=== PATIENT | female | born 1950 | race Caucasian/White ===

== ENCOUNTER 2017-04-17 00:37 | Inpatient (IN) | payer OTHER ==
[~2017-04-17] VITALS: Ht 154.9 cm; Wt 70.3 kg
--- NOTE | ~2017-04-17 | HC ---
[facility] [place] [address] CONSULTATION Name: TIMA FLOYD Room #: 428-P [facility] IN ..#: [id number] Admission: 04/17/17 Attend Phys: Juve Crews MD Discharge: Date of : 54 Report #: [id number] THIS REPORT FOR: //name// CC: Juve Mendoza DO DATE OF SERVICE: 04/17/2017 REASON FOR CONSULTATION: The patient is a 66-year-old woman who is admitted to [facility] with evidence of acute pancreatitis. HISTORY OF PRESENT ILLNESS: This 66-year-old patient reports she was well until yesterday evening when she developed severe pain in the epigastric to right upper quadrant area with some radiation to her back. The pain became very intense. She did have nausea and vomiting and reportedly vomited about 7 times. The pain persisted and she presented to [facility] Emergency Room where she was evaluated. Laboratory studies revealed normal electrolytes except for mild decreased potassium of 3.2, BUN was slightly elevated at 21, creatinine was 0.9. Her blood sugar was 236. AST, ALT, alkaline phosphatase and bilirubin were all normal. Lipase was elevated at 10,772, albumin 4.2. Her serum calcium was normal at 9.6. White count was 11.4, hemoglobin 13.5, platelet count of 326,000. She had a plain abdominal film, which revealed nonspecific findings. CT abdomen and pelvis with contrast was obtained. Gallbladder was noted to be normal, kidney cysts were noted. There is fluid around the pancreas, distal stomach, duodenum and retroperitoneum without any loculated fluid. There was felt to be edema in the head of the pancreas. Findings were consistent with acute pancreatitis. A mass lesion of the pancreas was not reported. The patient was admitted. She has been receiving pain medicines. She is somewhat lethargic at this time presumably from narcotics. She reports she has previously not had problems with pancreatitis. She is not aware of prior gallbladder disease. She does not like alcohol, therefore does not drink and has never drunk much alcohol. There is no family history of pancreatitis. She is on therapy for hyperlipidemia, but she does not know her numbers. None of her medications are new. PAST MEDICAL HISTORY: She has had high blood pressure, elevated cholesterol, diabetes, diverticulitis. PAST SURGICAL HISTORY: Hysterectomy, carpal tunnel release and a tummy tuck. ALLERGIES: NEOMYCIN, BACITRACIN, POLYMYXIN B, AND QUININE. [facility] [address] [place] [address] CONSULTATION Name: TIMA FLOYD Room #: 428-P [facility] IN [facility]#: [id number] Admission: 04/17/17 Attend Phys: Juve Crews MD Discharge: Date of : 54 Report #: [id number] FAMILY HISTORY: Grandmother had colon cancer. The patient is uncertain of her age at diagnosis. There is no family history of pancreatitis or pancreatic cancer. SOCIAL HISTORY: She is . She quit smoking 8 years ago. She does not consume alcohol. Last colonoscopy was done 1 month ago in [place]. She reports she had a positive Cologuard test, but the colonoscopy was negative per her report. REVIEW OF SYSTEMS: Somewhat limited as she is lethargic from her narcotics. GENERAL: No change in weight, fever or chills. CENTRAL NERVOUS SYSTEM: No weakness, numbness, loss of consciousness. ENT: No change in vision, hearing or sores in the mouth. PULMONARY: Former cigarette smoker. No cough, pneumonia or tuberculosis. CARDIOVASCULAR: No chest pain, chest tightness or palpitations. GASTROINTESTINAL: Nausea and vomiting with acute illness, recent colonoscopy negative per her report. She has had diverticulitis. GENITOURINARY: Without dysuria, pyuria, kidney stones, or kidney tract infection. MUSCULOSKELETAL: Some arthralgias, but she reports related to arthritis. GYNECOLOGIC: No breast problems. She has had previous hysterectomy, no vaginal discharge or bleeding. SKIN: Without rashes. PSYCHIATRIC: No depression, anxiety or bipolar illness. ENDOCRINE: Diabetes, but she is not aware of thyroid problems. HEMATOLOGIC: No bleeding, bruising or malignancies. PHYSICAL EXAMINATION: GENERAL: The patient is a well-developed, well-nourished woman who is drowsy, but does respond slowly to questions. VITAL SIGNS: Blood pressure 158/95, pulse of 76. HEENT: She is anicteric. Pupils equal and round. Oropharynx clear. NECK: Supple. CHEST: Clear. HEART: Regular rate and rhythm, normal S1 and S2. ABDOMEN: Normal bowel sounds, soft, moderate tenderness diffusely across the upper abdomen. No rebound or rigidity. I do not appreciate any masses. RECTAL: Not done. EXTREMITIES: Without cyanosis, clubbing, edema. NEUROLOGIC: Sedated from medications, moves all 4 extremities well. ASSESSMENT: 1. Acute pancreatitis. 2. Diabetes. 3. Hyperlipidemia. 4. History of diverticulitis. [facility] [address] [address] CONSULTATION Name: TIMA FLOYD Room #: 428-P [facility] IN .[place].#: [id number] Admission: 04/17/17 Attend Phys: Juve Crews MD Discharge: Date of : 54 Report #: [id number] COMMENT: Acute pancreatitis, etiology not entirely clear. She denies alcohol. Gallbladder is normal on CT. We will check by ultrasound. Also, in view of hyperlipidemia, we will check her lipid levels. In addition, the diagnosis of diabetes is relatively recent in the past year or 2. Mass was not reported on CT. Need to consider pancreatic cancer as well in this 66-year-old woman. RECOMMENDATIONS: 1. Ultrasound of the gallbladder to evaluate for cholelithiasis. 2. Cholesterol and triglyceride levels. 3. CA 19-9. 4. She should have a followup CT after resolution of pancreatitis to exclude a mass in her pancreas. By: 1025 [id number] Raj Ugalde MD /nt
--- NOTE | ~2017-04-17 | S ---
[facility] [place] [address] SURGICAL PATH RPT PROCEDURE Name: OLGA BRAVO Room #: 428-P ADM IN M.R.#: [id number] Admission: 04/17/17 Date of : 54 Discharge: Report #: [id number] Path Case #: [id number] PATHOLOGY REPORT COLLECTION DATE: 04/21/2017 RECEIVED DATE: 04/21/2017 SUBMITTING PHYS: Dr. Janeth Edwards OTHER PHYS: Patrick Noguera M.D. Dr. Haresh Mendoza SPECIMEN(S) RECEIVED: A.Gastric body * * * * * * * * * * * * FINAL DIAGNOSIS: Stomach, "gastric body", biopsy: - Mild chronic inflammation, non-specific. - No evidence of Helicobacter pylori on immunoperoxidase stain. ([facility]; 04/22/2017) PATHOLOGIST: Sarina Carlson M.D. REPORT ELECTRONICALLY SIGNED BY: Sarina Carlson M.D. DATE/TIME: 04/22/2017 14:08 * * * * * * * * * * * * GROSS PATHOLOGY: The specimen is received in formalin, labeled "Olga Bravo and biopsy gastritis", are two byers soft tissues 0.8 x 0.2 and a 0.5 x 0.2 cm, entirely submitted in A1. (SWS; 04/21/2017) CLINICAL HISTORY: Nausea, abdominal pain, normal EGD, rule out H. pylori INITIAL CPT CODE(S): A; 57527, 82978 Professional services performed by [facility] at [facility] [address], [place] [address] Technical services performed by [facility] at [address] [place] [id number]. [facility] [address] [place] [address] SURGICAL PATH RPT PROCEDURE Name: OLGA BRAVO Room #: 428-P [facility] IN M.R.#: [id number] Admission: 04/17/17 Date of : 54 Discharge: Report #: [id number] Path Case #: [id number] [address] PHONE: [phone] DIRECTOR: Luca Steen M.D. * * * END OF REPORT * * *
--- NOTE | ~2017-04-17 | S ---
[facility] [place] [address] SURGICAL PATH RPT PROCEDURE Name: OLGA BRAVO Room #: 428-P [facility] IN M.R.#: [id number] Admission: 04/17/17 Date of : 54 Discharge: 04/23/17 Report #: [id number] Path Case #: [id number] PATHOLOGY REPORT COLLECTION DATE: 04/22/2017 RECEIVED DATE: 04/22/2017 SUBMITTING PHYS: Dr. Chino Coreas, DO OTHER PHYS: Patrick Noguera M.D. Dr. Haresh Mendoza SPECIMEN(S) RECEIVED: A.Gallbladder * * * * * * * * * * * * FINAL DIAGNOSIS: Gallbladder, cholecystectomy: - Mild chronic cholecystitis. - Polypoid mucosa with cholesterolosis, compatible with cholesterol polyp measuring 0.1 cm. - Negative for dysplasia or malignancy. (IUV:mgr; 04/25/2017) PATHOLOGIST: Alexia Hidalgo M.D. REPORT ELECTRONICALLY SIGNED BY: Alexia Hidalgo M.D. DATE/TIME: 04/25/2017 14:47 * * * * * * * * * * * * GROSS PATHOLOGY: Received in formalin labeled "Olga Bravo, gallbladder," is a 7.5 x 4.3 x 1.3 cm, previously opened gallbladder with light byers to green, wrinkled serosal surfaces. Opening the gallbladder reveals dark byers, velvety mucosa, slightly rippled with yellow highlights, and an average wall thickness of 0.2 cm. Calculi are not present (upon filtration of the specimen container and contents). Noted grossly near the fundal aspect is a minute bump like structure measuring 0.1 cm and possessing a bright yellow color. Field Marketing Specialist sections from the body and fundus are submitted along with the proximal margin in cassette A1. ([facility]; 04/22/2017) CLINICAL HISTORY: Gallbladder disease INITIAL CPT CODE(S): A; [address] [facility] [place] [address] SURGICAL PATH RPT PROCEDURE Name: EVERETTOLGA Faustino Room #: 428-P [facility] IN [facility].#: [id number] Admission: 04/17/17 Date of : 54 Discharge: 04/23/17 Report #: [id number] Path Case #: [id number] Professional services performed by [facility] at [facility] [address] [place] [address] Technical services performed by [facility] at [address] [place] [address], [facility] [address] [address]. [facility] [address] [place] [address] PHONE: [phone] DIRECTOR: Luca Steen M.D. * * * END OF REPORT * * *
--- NOTE | ~2017-04-17 | P ---
[facility] [place] [address] PROCEDURE REPORT Name: TIMA FLOYD Room #: 428-P [facility] IN M.R.#: [id number] Admission: 04/17/17 Attend Phys: Patrick Noguera MD Discharge: Date of : 54 Report #: [id number] THIS REPORT FOR: //name// CC: Patrick Noguera MD Inpatient Chart Haresh Mendoza DO DATE OF SERVICE: 04/21/2017 The following is an EGD with biopsy. She is a patient of Dr. Patrick Noguera and Dr. Haresh Mendoza. This is Janeth Edwards is recording. INDICATION FOR PROCEDURE: Evaluate epigastric and right upper quadrant pain, nausea and vomiting. Informed consent for this procedure was obtained prior to the administration of any medication. The risks of the procedure which include bleeding, perforation, infection, complications of sedation and the possibility I could miss something have been explained to the patient and she has indicated her consent by signing. Propofol was slowly titrated before and during this procedure for patient comfort by the anesthesia service. The CloudBase3n upper videoscope was introduced through the upper esophageal sphincter and advanced under direct visualization to the descending duodenum. Findings are noted on withdrawal of the scope. There was bile throughout the second portion of the duodenum, it is black in color. The duodenal mucosa itself appears normal throughout its entirety. Pylorus, normal mucosa. Antrum, normal mucosa. Body, normal mucosa. Cardia and fundus, normal mucosa. Retroflex view did not reveal any abnormalities. Biopsies are obtained x 2 from the body and the antrum of the stomach for histopathology to evaluate for H. pylori infection. The scope was then withdrawn into the esophagus. The Z-line is appropriately located at the top of the gastric folds and is normal. The esophageal mucosa appears normal throughout its entirety. The scope was withdrawn. The patient went to the recovery area in stable condition. She tolerated the procedure well. IMPRESSION: Normal EGD to descending duodenum, biopsies pending to check for Helicobacter Pylori. RECOMMENDATIONS: As follows, because her PIPIDA showed the gallbladder ejection traction of 5%, would recommend surgical consult and we have requested this. For now, we will put her on a liquid diet after she is seen by the Surgeon. [address] [address] PROCEDURE REPORT Name: TIMA FLOYD Faustino Room #: 428-P [facility] IN ..#: [id number] Admission: 04/17/17 Attend Phys: Patrick Noguera MD Discharge: Date of : 54 Report #: [id number] Thank you very much once again for allowing me to participate in her care, Dr. Noguera and Dr. Mendoza. <ELECTRONICALLY SIGNED> By: Janeth Edwards DO 04/22/17 0837 1614 0050 Janeth Edwards, DO /nt
--- NOTE | ~2017-04-17 | HC ---
[facility] [place] [address] CONSULTATION Name: EVERETTTIMA Faustino Room #: 428-P [facility] IN ..#: [id number] Admission: 04/17/17 Attend Phys: Patrikc Noguera MD Discharge: 04/23/17 Date of : 54 Report #: [id number] THIS REPORT FOR: //name// CC: Lynda Mendoza DATE OF SERVICE: 04/21/2017 ATTENDING PHYSICIAN: Dr. Lynda Sena. REASON FOR CONSULTATION: Abdominal pain, biliary dyskinesia. HISTORY OF PRESENT ILLNESS: This is a 66-year-old female patient who was seen in the [place] [facility] Room with complaints of constant abdominal pain postprandially followed by nausea and vomiting. She has had several episodes of emesis associated with this. Through the emergency room, the patient was found to have an elevated lipase of greater than 10,000. White blood cell count was normal and liver function tests were normal. GI was consulted and the patient underwent a CT of the abdomen and pelvis showing pancreatitis without signs of necrosis or hemorrhage. Her abdominal x-ray showed 2 large oval calcifications overlying the left kidney. GI was consulted and saw the patient, who recommended an ultrasound and a CA 19-9 levels. The ultrasound revealed fatty infiltration of the liver without evidence for cholelithiasis. This was followed by a PIPIDA scan today showing evidence for biliary dyskinesia with a gallbladder ejection fraction of 5%. The cystic duct and common bile duct were patent. I have been asked to see the patient for further evaluation and treatment. PAST MEDICAL HISTORY: Significant for hypertension, hypercholesterolemia, diabetes mellitus, previous diverticulitis. PAST SURGICAL HISTORY: Includes bilateral carpal tunnel release, abdominoplasty, hysterectomy and a bladder sling operation. HOME MEDICATIONS: Include fenofibric acid, Zyrtec, Singulair, Zegerid, melatonin, 81 mg aspirin, magnesium chloride, hydrochlorothiazide, atorvastatin and Lunesta. ALLERGIES: Include BACITRACIN, NEOMYCIN, POLYMYXIN B (ALL FROM NEOSPORIN), AND QUININE. FAMILY HISTORY: Reviewed and noncontributory to this hospitalization. Her grandmother does have a history of colon cancer; however, there is no family history for pancreatic cancer. [address] [address] CONSULTATION Name: TIMA FLOYD Room #: 428-P [facility] IN ..#: [id number] Admission: 04/17/17 Attend Phys: Patrick Noguera MD Discharge: 04/23/17 Date of : 54 Report #: [id number] SOCIAL HISTORY: The patient is and denies use of tobacco (quit smoking 7-8 years ago) or illicit drugs. She denies use of alcohol. REVIEW OF SYSTEMS: As per history of present illness. GENERAL: The patient denies unintentional weight loss. Denies fever or chills. HEENT: Denies changes in taste, vision, hearing, or smell. RESPIRATORY: Denies shortness of breath, COPD or asthma. CARDIOVASCULAR: Denies chest pain or palpitations. GASTROINTESTINAL: As per history of present illness. In addition, the patient had a colonoscopy 1 month ago, reportedly negative. GENITOURINARY: Denies dysuria, urgency, increased urinary frequency or hematuria. MUSCULOSKELETAL: Denies myalgia or arthralgia. NEUROLOGIC: Denies headaches, numbness or tingling. PSYCHIATRIC: Denies depression, anxiety or suicidal ideations. SKIN AND INTEGUMENTARY: Denies new skin lesions, rashes, or moles. ENDOCRINE: Denies polydipsia or polyuria. HEMATOLOGIC: No easy bleeding, bruising or anemia. All other review of systems is negative. PHYSICAL EXAMINATION: VITAL SIGNS: Temperature 98.3, blood pressure 156/76, pulse 96, respirations 12. GENERAL: This is a well-developed, well-nourished 66-year-old female patient in no acute distress. HEENT: Atraumatic, normocephalic with moist mucosal membranes. She has no scleral icterus. NECK: Supple, no appreciable lymphadenopathy. Trachea is midline. CHEST: Clear bilaterally. No crackles or wheezes. CARDIOVASCULAR: Regular rate and rhythm, S1, S2. ABDOMEN: Soft and mildly tender to palpation in the upper epigastrium. She has negative Burton's sign, no rebound or guarding. No palpable masses, no appreciable hernias. GENITOURINARY: Normal external female genitalia. EXTREMITIES: No clubbing, cyanosis or edema. NEUROLOGIC: Cranial nerves 2-12 grossly intact. PSYCHIATRIC: Normal mood and affect. SKIN AND INTEGUMENTARY: No acute inflammatory changes, rashes or lesions are present. LABORATORY DATA: CBC most recently shows a white blood cell count of 11.1, hematocrit 33.8 and platelets 250. Her electrolytes show sodium of 141, potassium 3.6, chloride 107, CO2 31, BUN 10, creatinine 0.6 and glucose 149. Most recent liver function tests are from today, all normal. Lipase today was [facility] [address] [place] [address] CONSULTATION Name: TIMA FLOYD Room #: 428-P [facility] IN M.R.#: [id number] Admission: 04/17/17 Attend Phys: Patrick Noguera MD Discharge: 04/23/17 Date of : 54 Report #: [id number]. This has steadily decreased from her admission lipase of 10,772. RADIOLOGIC STUDIES: CT, Ultrasound and PIPIDA scan results are as noted above. IMPRESSION AND PLAN: This is a 66-year-old female patient with the above listed comorbidities, who has resolved pancreatitis and evidence for biliary dyskinesia with gallbladder ejection fraction of 5%. We discussed the pathophysiology and natural history of biliary dyskinesia as well as treatment alternatives and surgical options. The patient would benefit from laparoscopic cholecystectomy with cholangiogram. We discussed the risks, benefits, and expectations of the operation in detail. The patient expressed understanding and wishes to proceed. She will be scheduled to undergo the operation at the next earliest availability. I sincerely appreciate the opportunity to participate in the care of this patient and will leave further recommendations and orders in the electronic medical record as appropriate, both now and postoperatively. <ELECTRONICALLY SIGNED> By: Dima French MD, FACS 04/27/17 0844 1633 0017 Dima French MD, FACS /nt
--- NOTE | ~2017-04-17 | EKG ---
[address] [place] [address] ELECTROCARDIOGRAM REPORT Name: TIMA FLOYD Room #: 428-P ADM IN M.R.#: [id number] Admission: 04/17/17 Attend Phys: Juve Crews MD Discharge: Date of : 54 Report #: [id number] THIS REPORT FOR: //name// [facility] ED Test Date: 2017-04-17 Test Time: 01:07:39 Pat Name: TIMA FLOYD Department: Room: [facility] Gender: F Enchilada Maker: zoey redd : 1950 Requested By: Dustin Seals Order Number: [id number] MD: Darrius Lopez Measurements Intervals [place] Rate: 87 P: 42 [place]: 210 QRS: 20 QRSD: 108 T: 43 QT: 408 QTc: 491 Interpretive Statements Sinus rhythm Borderline prolonged QT interval Compared to ECG 03/26/2013 20:58:24 No significant changes Electronically Signed On 04-17-2017 11:22:38 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
[~2017-04-17 00:37] MED LIST: BENICAR20 MG; CELEXA40 MG; CIPROFLOXACIN500 M1 PO; FLAGYL500 MG PO; NORCO 5-325 TA1 EACH PO; PREMARIN0.3 MG; TRILIPIX45 MG PO; ZOFRAN ODT4 MG PO
[2017-04-17 00:47] VITALS: BP 140/79
[2017-04-17 01:19] LABS: URINE BILIRUBIN NEGATIVE (Negative); URINE BLOOD TRACE (Negative); URINE COLOR YELLOW; URINE GLUCOSE-RANDOM* NEGATIVE (Negative); URINE KETONES NEGATIVE (Negative); URINE LEUKOCYTES-REFLEX NEGATIVE (Negative); URINE PROTEIN (DIPSTICK) TRACE (Negative); URINE UROBILINOGEN 0.2 E.U./dl (0.2-1.0)
[2017-04-17 01:30] LABS: ABSOLUTE NEUTROPHILS 9.1 thou/uL (1.4-8.2); BASOPHILS 0.3 % (0.0-2.0); EOSINOPHILS 0.5 % (0.0-3.0); HEMATOCRIT 40.5 % (37.0-47.0); HEMOGLOBIN 13.5 gm/dL (12.0-15.0); LYMPHOCYTES 15.3 % (24.0-44.0); MCH 28.7 pg (26.0-34.0); MCHC 33.3 g/dL (28.0-37.0); MCV 86.2 fL (80.0-100.0); PLATELET COUNT 326 thou/uL (150-400); POLYS 79.9 % (36.0-66.0); RDW 13.2 % (10.5-14.5); WBC 11.4 thou/uL (4.0-11.0)
[2017-04-17 01:43] LABS: ANION GAP 13 mmol/L (7-16); BUN 22 mg/dL (7-18); CALCIUM 9.6 mg/dL (8.5-10.1); CHLORIDE 102 mmol/L (98-107); CO2 28 mmol/L (21-32); CREATININE 0.9 mg/dL (0.6-1.0); GLUCOSE 236 mg/dL (74-106); POTASSIUM 3.2 mmol/L (3.5-5.1); SODIUM 143 mmol/L (136-145)
[2017-04-17 01:50] LABS: MANUAL DIFF NO
[2017-04-17 01:52] LABS: ALBUMIN 4.2 g/dL (3.4-5.0); ALKALINE PHOSPHATASE 70 U/L (46-116); SGOT 27 U/L (15-37); SGPT 41 U/L (30-65); TOTAL BILIRUBIN 0.4 mg/dL (<0.1-1.0); TROPONIN-I < 0.04 ng/mL (<0.06)
[2017-04-17] MEDS ORDERED: ZYRTEC10 M5 PO (03:21)
[2017-04-17] MEDS ORDERED: SINGULAIR 10 MG10 M1 PO (03:22)
[2017-04-17] MEDS ORDERED: ZEGERID OTC 201 EACH PO (03:22)
[2017-04-17] MEDS ORDERED: ASPIR 8181 MG PO (03:23)
[2017-04-17] MEDS ORDERED: MELATONIN5 M1 PO (03:23)
[2017-04-17] MEDS ORDERED: SLOW-MAG64 M1 (03:24)
[2017-04-17] MEDS ORDERED: HYDROCHLOROTHIA25 M2 PO (03:25)
[2017-04-17] MEDS ORDERED: LIPITOR 20 MG T20 M1 PO (03:25)
[2017-04-17] MEDS ORDERED: LUNESTA3 MG PO (03:27)
[2017-04-17 03:30] VITALS: BP 131/95
[2017-04-17 04:30] VITALS: BP 160/98
[2017-04-17 08:32] VITALS: BP 158/95
[2017-04-17 16:00] VITALS: BP 128/81
[2017-04-17 19:46] VITALS: BP 126/77
[2017-04-18 00:14] VITALS: BP 116/68
[2017-04-18 03:55] VITALS: BP 112/65
[2017-04-18 06:36] LABS: HEMATOCRIT 37.4 % (37.0-47.0); HEMOGLOBIN 12.2 gm/dL (12.0-15.0); MCH 28.7 pg (26.0-34.0); MCHC 32.7 g/dL (28.0-37.0); MCV 87.7 fL (80.0-100.0); RBC 4.26 mil/uL (4.20-5.00); RDW 13.7 % (10.5-14.5); WBC 9.8 thou/uL (4.0-11.0)
[2017-04-18 06:49] LABS: CHOLESTEROL 93 mg/dL (<200); HDL CHOLESTEROL 47 mg/dL (>40); LDL CHOLESTEROL 35 mg/dL (<100); TRIGLYCERIDE 59 mg/dL (<150); VLDL 12 mg/dL (<40)
[2017-04-18 06:54] LABS: ALBUMIN 3.3 g/dL (3.4-5.0); CALCIUM 8.8 mg/dL (8.5-10.1); CREATININE 0.7 mg/dL (0.6-1.0); POTASSIUM 3.4 mmol/L (3.5-5.1); TOTAL BILIRUBIN 0.3 mg/dL (<0.1-1.0); TOTAL PROTEIN 5.9 g/dL (6.4-8.2)
[2017-04-18 07:54] VITALS: BP 122/77
[2017-04-18 15:25] VITALS: BP 121/73
[2017-04-18 19:42] VITALS: BP 125/73
[2017-04-19 04:06] VITALS: BP 126/77
[2017-04-19 04:32] LABS: HEMATOCRIT 33.8 % (37.0-47.0); HEMOGLOBIN 11.1 gm/dL (12.0-15.0); MCH 28.9 pg (26.0-34.0); MCHC 32.7 g/dL (28.0-37.0); MCV 88.3 fL (80.0-100.0); RBC 3.83 mil/uL (4.20-5.00); RDW 13.8 % (10.5-14.5); WBC 11.1 thou/uL (4.0-11.0)
[2017-04-19 04:40] LABS: ALBUMIN 2.9 g/dL (3.4-5.0); CALCIUM 8.4 mg/dL (8.5-10.1); CREATININE 0.6 mg/dL (0.6-1.0); POTASSIUM 3.3 mmol/L (3.5-5.1); TOTAL BILIRUBIN 0.5 mg/dL (<0.1-1.0); TOTAL PROTEIN 5.8 g/dL (6.4-8.2)
[2017-04-19 07:45] VITALS: BP 145/80
[2017-04-19] MEDS ORDERED: NORCO 5-325 TA1 EACH PO (14:04)
[2017-04-19 15:00] LABS: CALCIUM 8.7 mg/dL (8.5-10.1); CREATININE 0.6 mg/dL (0.6-1.0); MAGNESIUM 1.7 mg/dL (1.8-2.4); POTASSIUM 3.6 mmol/L (3.5-5.1)
[2017-04-19 16:03] VITALS: BP 148/83
[2017-04-19 20:26] VITALS: BP 128/72
[2017-04-20 07:13] LABS: IgG 401 mg/dL (700-1600)
[2017-04-20 08:00] VITALS: BP 132/72
[2017-04-20 16:39] VITALS: BP 137/60
[2017-04-20 20:00] VITALS: BP 152/69
[2017-04-21 04:00] VITALS: BP 150/71
[2017-04-21 06:45] LABS: ALBUMIN 2.6 g/dL (3.4-5.0); DIRECT BILIRUBIN 0.1 mg/dL (<0.1-0.3); TOTAL BILIRUBIN 0.3 mg/dL (<0.1-1.0); TOTAL PROTEIN 5.7 g/dL (6.4-8.2)
[2017-04-21 09:35] VITALS: BP 156/76
[2017-04-21 19:24] VITALS: BP 160/87
[2017-04-21 21:05] VITALS: BP 115/71
[2017-04-22] VITALS (12 sets, daily range): BP systolic 126–150; BP diastolic 68–98
[2017-04-23 03:35] VITALS: BP 124/57
[2017-04-23 08:04] VITALS: BP 133/69
[2017-04-23 10:15] VITALS: BP 133/69
== END 2017-04-23 11:30 | disposition home or self-care (01) | DRG 417 ==
LOC: ER 00:37 → EROBS 02:46 → 4E 02:46
PROVIDERS: Emergency Medicine; Hospitalist; Internal Medicine Gastroenterology; Nurse Practitioner; Nurse Practitioner Family
PROC: 0DB68ZX Excision of Stomach, Via Natural or Artificial Opening Endoscopic, Diagnostic (ICD-10-PCS; principal; 2017-04-21)
PROC: 0FT44ZZ Resection of Gallbladder, Percutaneous Endoscopic Approach (ICD-10-PCS; 2017-04-22)
PROC: BF121ZZ Fluoroscopy of Gallbladder using Low Osmolar Contrast (ICD-10-PCS; 2017-04-22)
DX: K85.90 Acute pancreatitis without necrosis or infection, unspecified (principal); N17.0 Acute kidney failure with tubular necrosis; K81.1 Chronic cholecystitis; K82.8 Other specified diseases of gallbladder; E87.6 Hypokalemia; K76.0 Fatty (change of) liver, not elsewhere classified; I10 Essential (primary) hypertension; E11.9 Type 2 diabetes mellitus without complications; E78.00 Pure hypercholesterolemia, unspecified; Z90.710 Acquired absence of both cervix and uterus; Z88.0 Allergy status to penicillin; Z88.8 Allergy status to other drugs, medicaments and biological substances; Z83.79 Family history of other diseases of the digestive system; Z87.891 Personal history of nicotine dependence; Z88.1 Allergy status to other antibiotic agents; Z79.899 Other long term (current) drug therapy
CPT/HCPCS: 10084; 50010; 50101; 50249; 50411; 50555; 50558; 51489; 51975; 52265; 53307; 53310; 54022; 54118; 55245; 55317; 56462; 56525; 56526; 62110; 62900